=== PATIENT | female | born 1990 ===

== ENCOUNTER → 2021-08-06 08:12 | Outpatient (CLI) | payer OTHER, SELFPAY ==
--- NOTE | 2021-08-06 | DI.NM.S_ITS ---
PROCEDURE: NM HIDA WITH CCK PHARMACEUTICAL: 5.4 mCi Tc-99m mebrofenin IV; 2.1 mcg CCK IV. INDICATIONS: Calculus of gallbladder without cholecystitis with TECHNIQUE: Following intravenous administration of Tc-99m mebrofenin, sequential anterior abdominal images were obtained. To evaluate the contractile response of the gallbladder in response to Cholecystokinin (CCK), sincalide (0.02 ?g/kg) was administered by slow intravenous infusion approximately 60 minutes after the administration of the radiopharmaceutical. Sequential imaging was continued for 30 minutes after the start of CCK infusion. Gallbladder ejection fraction was calculated. COMPARISON: None. FINDINGS: Biliary scan: There is normal tracer uptake and excretion by the liver. There is normal visualization of the intrahepatic ducts, common bile duct, and gallbladder. There is normal tracer transit into the duodenum. CCK stimulation: There is diminished contractile response of the gallbladder to CCK infusion. The calculated gallbladder ejection fraction is 10%; normal values are above 35%. It has been shown that any patient abdominal pain after CCK administration is related to the rate of CCK injection, rather than to any underlying gallbladder disease (Clinical Nuclear Medicine 2012; 37: 63-70. Journal of Nuclear Medicine 2014; 55: 1-9). IMPRESSION: Abnormal diminished gallbladder ejection fraction. Finding is nonspecific and may be related to chronic cholecystitis or biliary dyskinesia. Dictated by: Fabiana Lujan MD, PhD on 08/06/2021 at 11:48 Approved by: Fabiana Lujan MD, PhD on 08/06/2021 at 11:51
== END ==
PROVIDERS: Referring Provider Internal Medicine Gastroenterology; Visit Provider Internal Medicine Gastroenterology
DX: K80.20 Calculus of gallbladder without cholecystitis without obstruction (principal)
CPT/HCPCS: 78227; A9537; J2805

== ENCOUNTER → 2021-08-31 14:31 | Outpatient (CLI) | payer OTHER, SELFPAY ==
[2021-08-31 16:27] LABS: COVID19 -Nasal RAPID Negative (Negative)
== END ==
PROVIDERS: Referring Provider Physician Assistant; Visit Provider Physician Assistant
DX: Z20.822 Contact with and (suspected) exposure to COVID-19 (principal); Z01.812 Encounter for preprocedural laboratory examination
CPT/HCPCS: 87635

== ENCOUNTER 2021-09-01 08:19 | Day surgery (SDC) | payer OTHER, SELFPAY ==
--- NOTE | 2021-09-01 | PATH_ITS ---
[facility] Accession Number: [id number] . 01 Material submitted: . stomach - ANTRUM BIOPSY . 02 Diagnosis: Antrum, Biopsy: Portions of gastric antral and body-type mucosa with mild chronic inflammation. Negative for Helicobacter organisms by immunohistochemistry studies. Negative for intestinal metaplasia. Negative for dysplasia or malignancy. [facility] 09/04/2021 1759 Local . 02 Electronically signed: . Chiquita Kelly MD, Pathologist NPI- [id number] . 01 Gross description: . ANTRUM BIOPSY: Received in formalin are 2 fragment(s) of grider, soft tissue measuring 0.3 x 0.2 x 0.2 cm to 0.2 x 0.2 x 0.2 cm submitted entirely in 1 cassette(s) /[facility] 09/02/2021 1419 Local . 02 Microscopic: . An immunohistochemical stain was performed on block A1 to evaluate for Helicobacter organisms and is negative. The control stain showed appropriate reactivity. . * This test was developed and its performance characteristics determined by [facility]. It has not been cleared or approved by the U.S. Food and Drug Administration. The FDA has determined that such clearance or approval is not necessary. This test is used for clinical purposes. It should not be regarded as investigational or for research. . 02 Pathologist provided ICD-10: K80.20, K29.70 . 02 CPT . 922234, [id number] Performed at: 01 [facility] [address] [facility], [place], [place] [id number] MD Vipul Roche MD Phone: [phone] Performed at: 02 [facility] [id number] [place], [place] [id number] MD Jessica Burns MD Phone: [phone]
[2021-09-01 08:49] VITALS: BP 113/73; PULSE 79; RESP 16; TEMP 36.4; O2SAT 99
--- NOTE | 2021-09-01 08:54 | PM.HP.1 ---
History of Present Illness History of Present Illness Date Patient Seen: 09/01/21 Time Patient Seen: 08:54 Chief complaint: EGD Narrative: I reviewed her recent HIDA scan and Dr. Hughes's note no major changes. Meds Home Medications and Allergies Home Medications Medication Instructions Recorded Confirmed Type albuterol sulfate 90 mcg/actuation 90 mcg INHALATION PRN PRN 09/01/21 09/01/21 History aerosol inhaler fluticasone propionate 220 220 mcg INHALATION BID 09/01/21 09/01/21 History mcg/actuation HFA aerosol inhaler (Flovent HFA) loratadine 10 mg tablet 10 mg DAILY 09/01/21 09/01/21 History Allergies Allergy/AdvReac Type Severity Reaction Status Date / Time No Known Drug Allergies Allergy Verified 09/01/21 08:44 Review of Systems Review of Systems ROS: Yes All systems reviewed with the patient and are negative except as otherwise documented Exam Const General: cooperative and comfortable Orientation: alert HENMT Head: normocephalic Ears: external ears normal Nose: external nose normal Face and sinus: normal facial exam Mouth: oral mucosae normal Eyes General: appearance normal, both eyes and all related structures Neck Neck: normal visual inspection Chest Chest: normal inspection of the chest Resp Effort & Inspection: normal respiratory effort Cardio Rate: regular rate Heart Sounds: no murmurs GI Inspection: normal to inspection Skin General: no rashes or lesions noted and No jaundice Neuro General: patient alert and moves all extremities Cognition: normal cognition Speech: speech normal Extrem General: no pedal edema Psych Appearance: grossly normal Assessment & Plan Assessment & Plan narrative: Chronic intermittent nausea vomiting. Biliary dyskinesia. Cholelithiasis. EGD is pursued today to exclude additional pathology such as peptic ulcer disease or esophagitis. Time Spent With Patient Critical Care time: I spent a total of [] minutes of critical care time on this patient's care today; this time is exclusive of procedural time.
--- NOTE | 2021-09-01 08:56 | PM.PREOP ---
Pre-operative Note COVID-19 COVID-19 status: Negative Result date/Date tested (Pos, Neg/Pending): 08/31/21 Interval Note History & Physical reviewed/Exam performed by Physician: Yes Changes to H&P: No ASA Class (for procedural sedation): II
[2021-09-01] MEDS: SODIUM CHLORIDE 0.9% 1,000 ML 84 ML IV (08:59)
--- NOTE | 2021-09-01 09:41 | P.OP.EGD_ITS ---
Operative Date/Time/Diagnoses Date of procedure: 09/01/21 Time of procedure: 09:41 Pre-op diagnosis: Nausea vomiting Post-op diagnosis: same Procedure & Clinicians Study performed: EGD with biopsy Same procedure as scheduled: Yes Indications: Nausea vomiting Surgeon: Josue Segovia Procedure Notes SCOAP/Timeout: Done Procedure in detail: After the risks and benefits were explained, written and verbal informed consent was obtained. The patient was brought into the procedure room and placed into the left lateral decubitus position. Please see nurse it senior software engineer java notes for sedation details. The scope was introduced into the mouth through the bite block and advanced under direct visualization to the 2nd portion of the duodenum. The scope was slowly withdrawn carefully examining the mucosa for any defects or lesions. Retroflexed views were accomplished in the stomach. The stomach was decompressed, the scope was then removed from the patient who tolerated the procedure well. Sedation minutes: 9 Complications: none Impression: 1. Duodenum: This was visually normal from the bulb through to the 2nd portion. Normal bile stained mucosa was seen in D2 2. Stomach: Patient had a mild gastropathy. No ulcers no outlet obstruction no strictures no mass lesions. Antral biopsies were acquired for exclusion of Helicobacter retroflexed views of the LES were unremarkable 3. Esophagus: The squamocolumnar junction correlated with the top of the gastric folds. Patient had a very subtle sliding hiatal hernia and evidence of LA grade A erosive esophagitis Endoscopic diagnosis 1. LA grade a erosive esophagitis 2. Mild gastropathy 3. Subtle small sliding hiatal hernia Post-procedure Plan for aftercare: 1. Await histopathology 2. Consider daily Pepcid therapy 3. Follow up surgery clinic for gallbladder pathology. Disposition: PACU
[2021-09-01 09:45] VITALS: BP 123/72; PULSE 79; RESP 17; TEMP 36.3; O2SAT 98
[2021-09-01 09:50] VITALS: BP 116/84; PULSE 79; RESP 12; O2SAT 99
[2021-09-01 09:55] VITALS: BP 122/83; PULSE 81; RESP 12; O2SAT 100
[2021-09-01 10:01] VITALS: BP 117/84; PULSE 69; RESP 13; O2SAT 100
[2021-09-01 10:09] VITALS: BP 112/87; PULSE 78; RESP 14; TEMP 36.6; O2SAT 100
== END 2021-09-01 10:16 | disposition home or self-care (01) ==
PROVIDERS: Referring Provider Internal Medicine Gastroenterology; Visit Provider Internal Medicine Gastroenterology
PROC: 0DJ08ZZ Inspection of Upper Intestinal Tract, Via Natural or Artificial Opening Endoscopic (ICD-10-PCS; CPT 43235; principal; 2021-09-01 09:30)
DX: K29.50 Unspecified chronic gastritis without bleeding (principal); K82.8 Other specified diseases of gallbladder; K20.80 Other esophagitis without bleeding; K44.9 Diaphragmatic hernia without obstruction or gangrene; K31.9 Disease of stomach and duodenum, unspecified
CPT/HCPCS: 43239; 81025; J2704